=== PATIENT | female | born 1955 | race American Indian/Alaskan Native ===

== ENCOUNTER 2017-03-14 16:01 | Emergency (ER) | payer MEDICARE ==
[2017-03-14] MEDS ORDERED: TYLENOL PO ONE (20:14)
--- NOTE | 2017-03-14 20:17 | Emergency Department Report ---
ED Fall HPI - General Chief Complaint: Fall Stated Complaint: FALL Time Seen by Provider: 03/14/17 20:12 Source: patient Mode of arrival: Wheelchair - History of Present Illness Initial Comments: 62-year-old -[place] female with a past medical history of diabetes type 2 end stage renal disease stage III and hypertension comes in today stating that she fail while going to the door to turn off the alarm. Patient reports that she was in flip flops and she caught in the door this morning approximately 08 30. She complains of a broken right thumbnail as well as the nailbed of her left great toe lifted on one side and she also complains of lower back pain that radiates to the but she did take unremarkable around 1400 today. Patient reports when she fail she landed on her bottom and felt pain that radiated up radiated all the way to her head and now she has an headache. He reports that the [place] has not relieved her pain. She reports that she she' ll see on 10 of [place] she split that in half and took half of the [place] which consumed a 5 mg over 325. Patient denies any active bleeding. She denies any nausea no vomiting no change in vision. She does admit to be in down on the ground for greater than 30 minutes. 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, by family Place Fall Occurred: home Loss of Consciousness: none Prolonged Down Time?: yes, minute(s) (>30) Location: back, buttocks Location - Extremities: Left: Foot, Right: Hand Severity: severe Severity scale (0 -10): 9 Quality: sharp, stabbing Associated Symptoms: headache - Related Data Previous Rx's Medication Instructions Recorded Last Taken Type HYDROcodone/APAP 10-325 [[place] 1 each PO Q8HR PRN #12 tablet 03/15/17 Unknown Rx 10/325] Allergies Allergy/AdvReac Type Severity Reaction Status Date / Time Penicillins AdvReac Rash Verified 03/14/17 16:36 ED Review of Systems ROS: Stated complaint: FALL Other details as noted in HPI Constitutional: denies: chills, fever Eyes: denies: eye pain, eye discharge, vision change ENT: denies: ear pain, throat pain Respiratory: denies: cough, shortness of breath, wheezing Endocrine: no symptoms reported Gastrointestinal: denies: abdominal pain, nausea, diarrhea Genitourinary: denies: urgency, dysuria, discharge Musculoskeletal: back pain Skin: change in hair/nails Neurological: headache Psychiatric: denies: anxiety, depression Hematological/Lymphatic: denies: easy bleeding, easy bruising ED Past Medical Hx - Past Medical History Hx Hypertension: Yes Hx Diabetes: Yes Hx Renal Disease: Yes (stage 3) Hx Arthritis: Yes (rheumatoid) Additional medical history: chronic back pain. ulcers - Surgical History Hx Cholecystectomy: Yes Hx Appendectomy: Yes Hx Breast Surgery: Yes (reduction) Additional Surgical History: L4-L5 surgery. gastric bypass. "arm reduction". hysterectomy - Social History Smoking Status: Never Smoker Substance Use Type: Prescribed - Medications Home Medications: Home Medications Medication Instructions Recorded Confirmed Last Taken Type HYDROcodone/APAP 10-325 [[place] 1 each PO Q8HR PRN #12 tablet 03/15/17 Unknown Rx 10/325] ED Physical Exam - General Limitations: Physical Limitation General appearance: alert, in no apparent distress - Head Head exam: Present: atraumatic, normocephalic - Eye Eye exam: Present: normal appearance - Neck Neck exam: Present: normal inspection - Cardiovascular Cardiovascular Exam: Present: regular rate, normal rhythm. Absent: systolic murmur, diastolic murmur, rubs, gallop - GI/Abdominal GI/Abdominal exam: Present: soft, normal bowel sounds - Expanded Upper Extremity Exam Right Hand Wrist exam: Present: subungual hematoma - Expanded Lower Extremity Exam Left Foot/Toe exam: Present: nail avulsion, subungual hematoma Neuro vascular tendon exam: Present: no vascular compromise ED Course Vital Signs 03/14/17 03/14/17 16:39 19:59 Temperature 98.2 F Pulse Rate 63 55 L Respiratory 18 18 Rate Blood Pressure 160/77 Blood Pressure 151/81 [Right] O2 Sat by Pulse 100 100 Oximetry ED Medical Decision Making - Lab Data Result diagrams: 03/14/17 20:30 03/14/17 20:30 - Radiology Data Radiology results: report reviewed, image reviewed FINAL REPORT EXAM: CT LUMBAR SPINE WO CON HISTORY: fall with back pain TECHNIQUE: CT images are acquired through the lumbar spine without contrast. Transaxial , coronal and sagittal reformations are provided. PRIORS: None. FINDINGS: Lumbar lordosis is intact. The patient is status post laminectomy, posterior discectomy and fusion at L4-L5. There is approximately 25 percent superior endplate height loss at L1 secondary to a mild compression fracture involving the anterior half of the vertebral body. No retropulsion or fragmentation. Lower lumbar fusion hardware appears intact. Sequela of disc degeneration at T11-T12 including vacuum disc phenomenon and anterior endplate spondylosis. The imaged portions of the abdomen and pelvis are remarkable for vascular calcification. IMPRESSION: Mild compression deformity involving the superior endplate L1, which is likely restricted to the anterior half of the vertebral body as detailed above. No fragmentation or retropulsion. No acute finding identified in association with L4-L5 posterior fusion. Notification initiated via [facility] office support specialist immediately following the exam. Transcribed By: MB Dictated By: TIFFANIE MAE MD Electronically Authenticated By: TIFFANIE MAE MD Signed Date/Time: 03/14/172212 DD/ 12 TD/TT: 03/14/172212 - Medical Decision Making This patient has been evaluated by this provider fast track. Discussed with patient that we will do a CAT scan of her back to rule out any abnormalities. Discussed the patient will give her adequate pain management. Discussed the patient I will call her on-call the pedis and discussed findings. Spoke with at [facility] [phone]. Discissed my CT finding he recommends patient to be placed in a back brace adequate pain management and for her to follow-up next week and to the clinic. Critical care attestation.: If time is entered above; I have spent that time in minutes in the direct care of this critically ill patient, excluding procedure time. ED Disposition Clinical Impression: Fall Qualifiers: Encounter type: initial encounter Qualified Code(s): W19.XXXA - Unspecified fall, initial encounter Compression fracture of L1 lumbar vertebra Qualifiers: Encounter type: sequela Qualified Code(s): S32.010S - Wedge compression fracture of first lumbar vertebra, sequela Disposition: DISCHARGED TO HOME OR SELFCARE Is pt being admited?: No Does the pt Need Aspirin: No Condition: Stable Instructions: Chronic Back Pain (ED), Acute Low Back Pain (ED) Additional Instructions: Please take pain medication as prescribed. Please do not operate heavy machinery while taking pain medication. It's very important for you to follow up with your regular orthopedics as well as her pain management doctor. Prescriptions: HYDROcodone/APAP 10-325 [[place] 10/325] 1 each PO Q8HR PRN #12 tablet PRN Reason: Pain Referrals: PRIMARY CARE, [Primary Care Provider] - 3-5 Days AILIN SALAZAR MD [Referring] - 3-5 Days Forms: Work/School Release Form(ED), Accompanied Note
[2017-03-14 20:59] LABS: Basophils % (Auto) 0.5 % (0.0-1.8); Eosinophils % (Auto) 2.4 % (0.0-4.3); Hematocrit 35.6 % (30.3-42.9); Hemoglobin 11.5 gm/dl (10.1-14.3); Mean Corpuscular HGB Conc 32 % (30-34); Mean Corpuscular Hemoglobin 29 pg (28-32); Mean Corpuscular Volume 89 fl (79-97); Platelet Count 217 K/mm3 (140-440); Red Blood Count 3.99 M/mm3 (3.65-5.03); Red Cell Distribution Width 13.2 % (13.2-15.2); White Blood Count 6.8 K/mm3 (4.5-11.0)
[2017-03-14 21:11] LABS: Alanine Aminotransferase 11 units/L (7-56); Albumin 4.1 g/dL (3.9-5); Albumin/Globulin Ratio 1.5 %; Alkaline Phosphatase 142 units/L (35-129); Anion Gap 18 mmol/L; BUN/Creatinine Ratio 19.09; Blood Urea Nitrogen 21 mg/dL (7-17); Calcium 9.3 mg/dL (8.4-10.2); Carbon Dioxide 23 mmol/L (22-30); Chloride 102.8 mmol/L (98-107); Creatine Kinase 60 units/L (30-135); Glucose 175 mg/dL (65-100); Potassium 4.4 mmol/L (3.6-5.0); Sodium 139 mmol/L (137-145); Total Protein 6.8 g/dL (6.3-8.2)
[2017-03-14 21:43] LABS: Bilirubin,Urine NEG (Negative); Blood,Urine NEG (Negative); Ketones,Urine NEG (Negative); Leukocyte Esterase,Urine NEG (Negative); Mucus,Urine FEW /HPF; Nitrite,Urine NEG (Negative); Protein,Urine <15 mg/dL mg/dL (Negative); Urobilinogen,Urine < 2.0 mg/dL (<2.0)
--- NOTE | 2017-03-14 22:18 | Cat Scan Report ---
FINAL REPORT EXAM: CT LUMBAR SPINE WO CON HISTORY: fall with back pain TECHNIQUE: CT images are acquired through the lumbar spine without contrast. Transaxial , coronal and sagittal reformations are provided. PRIORS: None. FINDINGS: Lumbar lordosis is intact. The patient is status post laminectomy, posterior discectomy and fusion at L4-L5. There is approximately 25 percent superior endplate height loss at L1 secondary to a mild compression fracture involving the anterior half of the vertebral body. No retropulsion or fragmentation. Lower lumbar fusion hardware appears intact. Sequela of disc degeneration at T11-T12 including vacuum disc phenomenon and anterior endplate spondylosis. The imaged portions of the abdomen and pelvis are remarkable for vascular calcification. IMPRESSION: Mild compression deformity involving the superior endplate L1, which is likely restricted to the anterior half of the vertebral body as detailed above. No fragmentation or retropulsion. No acute finding identified in association with L4-L5 posterior fusion. Notification initiated via [facility] instructional support services director immediately following the exam.
[2017-03-15 01:41] VITALS: BP 145/82
== END 2017-03-15 02:24 | disposition home or self-care (01) ==
LOC: ED 16:01
DX: S32.010S Wedge compression fracture of first lumbar vertebra, sequela (principal); E11.22 Type 2 diabetes mellitus with diabetic chronic kidney disease; I12.9 Hypertensive chronic kidney disease with stage 1 through stage 4 chronic kidney disease, or unspecified chronic kidney disease; N18.3 Chronic kidney disease, stage 3 (moderate)
CPT/HCPCS: 36415; 72131; 80053; 81001; 82550; 85025; 99284